=== PATIENT | female | born 1975 | race Caucasian/White ===

== ENCOUNTER 2018-10-17 09:00 | Outpatient (CLI) | payer OTHER ==
[~2018-10-17] VITALS: Ht 170.2 cm; Wt 77.1 kg
[2018-10-17 09:10] VITALS: BP 128/79
[2018-10-17] MEDS ORDERED: MV-M1TAB32 PO (09:34)
[2018-10-17 10:00] LABS: BILIRUBIN,URINE NEGATIVE (NEGATIVE); CLARITY,URINE CLEAR; COLOR,URINE YELLOW; GLUCOSE, URINE (UA) NEGATIVE (NEGATIVE); KETONES,URINE NEGATIVE (NEGATIVE); LEUKOCYTE ESTERASE ,URINE NEGATIVE (NEGATIVE); NITRITE,URINE NEGATIVE (NEGATIVE); PH,URINE 7 (5-9); PROTEIN,URINE NEGATIVE (NEGATIVE); UROBILINOGEN,URINE NORMAL (NORMAL)
[2018-10-17 10:00] LABS: BASOPHILS % (AUTO) 1 % (0-10); EOSINOPHILS # (AUTO) 0.1 10^3/uL (0.0-0.3); EOSINOPHILS % (AUTO) 2 % (0-10); HEMATOCRIT 43 % (35-52); HEMOGLOBIN 14.3 G/DL (11.5-16.0); LYMPHOCYTES # (AUTO) 1.9 X 10^3 (1.0-4.0); LYMPHOCYTES % (AUTO) 30 % (12-44); MEAN CORPUSCULAR HEMOGLOBIN 30 PG (25-34); MEAN CORPUSCULAR HGB CONC 33 G/DL (32-36); MEAN CORPUSCULAR VOLUME 89 FL (80-99); MEAN PLATELET VOLUME 10.7 FL (7.4-10.4); MONOCYTES # (AUTO) 0.6 X 10^3 (0.0-1.0); MONOCYTES % (AUTO) 10 % (0-12); NEUTROPHILS # (AUTO) 3.7 X 10^3 (1.8-7.8); NEUTROPHILS % (AUTO) 58 % (42-75); PLATELET COUNT 326 10^3/uL (130-400); RED CELL DISTRIBUTION WIDTH 12.8 % (10.0-14.5); WHITE BLOOD COUNT 6.4 10^3/uL (4.3-11.0)
[2018-10-17 10:14] LABS: BACTERIA,URINE NEGATIVE /HPF; SQUAMOUS EPITHELIAL CELL,UR 0-2 /HPF
== END 2018-10-17 09:35 | disposition home or self-care (01) ==
LOC: PREOP 09:00
PROVIDERS: ATTEND Obstetrics & Gynecology
DX: Z01.812 Encounter for preprocedural laboratory examination (principal); Z11.2 Encounter for screening for other bacterial diseases; N80.9 Endometriosis, unspecified; N81.9 Female genital prolapse, unspecified
CPT/HCPCS: 36415; 81000; 85025; 86850; 86900; 86901; 87081

== ENCOUNTER 2018-10-22 06:05 | Day surgery (SDC) | payer OTHER ==
[~2018-10-22] VITALS: Ht 170.2 cm; Wt 77.1 kg
[~2018-10-22 06:05] MED LIST: MV-M1TAB32 PO
[2018-10-22] MEDS ORDERED: LIDOCAINE/PRILOCAINE (EMLA) 5 GM TUBE TP ONE ×2 (06:08→06:15)
[2018-10-22] MEDS ORDERED: LACTATED RINGERS 1,000 ML IV PRN (06:10)
--- OUTSIDE RECORDS SUMMARY | 2018-10-22 06:12 | XMS REPORT ---
Author Author VIOLA GEORGES [facility] Address [address] [place] [address] Care Team Providers Care Email Marketing Manager Name Role Phone VIOLA GEORGES Unavailable PROBLEMS ALLERGIES No Information ENCOUNTERS IMMUNIZATIONS No Known Immunizations SOCIAL HISTORY No smoking Hx information available REASON FOR VISIT PLAN OF CARE VITAL SIGNS MEDICATIONS Unknown Medications RESULTS No Results PROCEDURES No Known procedures INSTRUCTIONS MEDICATIONS ADMINISTERED No Known Medications MEDICAL (GENERAL) HISTORY
--- OUTSIDE RECORDS SUMMARY | 2018-10-22 06:12 | XMS REPORT ---
Author Author VIOLA GEORGES Organization [facility] [place] Address [address] [place] [address] Care Team Providers Care Air Hose Coupler Name Role Phone VIOLA GEORGES Unavailable PROBLEMS Type Condition ICD9-CM Code [id number] Code Onset Dates Condition Status SNOMED Code Problem Vulvodynia N94.819 Active 995201444 ALLERGIES No Information ENCOUNTERS Encounter Location Date Diagnosis [facility] [place] [id number] [place] [phone] Apr, [facility] [place] [id number] [place] [phone] Apr, [facility] [place] [id number] [place] [phone] Apr, [facility] [place] [id number] [place] [phone] Mar, Umbilical hernia without obstruction and without gangrene K42.9 ; Vulvodynia N94.819 and Skin lesion of right arm L98.9 [facility] [place] [address], [place] [address] Mar, IMMUNIZATIONS No Known Immunizations SOCIAL HISTORY Never Assessed REASON FOR VISIT Re:RE:Referral for Dr. Ramires PLAN OF CARE VITAL SIGNS MEDICATIONS Unknown Medications RESULTS No Results PROCEDURES No Known procedures INSTRUCTIONS MEDICATIONS ADMINISTERED No Known Medications MEDICAL (GENERAL) HISTORY Type Description Date Medical History leukemia acute lymphoblastic in 1990, remission in 1992, cured in 1995 Surgical History mediport placed in 1990- removed in 1992 Surgical History breast reduction 2000 Surgical History left ankle surgery 2008 Surgical History right hip surgery to repair tear in cartilage 2014 Hospitalization History surgeries
--- OUTSIDE RECORDS SUMMARY | 2018-10-22 06:12 | XMS REPORT ---
Author Author VIOLA GEORGES Organization [facility] [place] Address [address] [place] [address] Care Team Providers Care Payer Specialist Name Role Phone VIOLA GEORGES Unavailable PROBLEMS Type Condition ICD9-CM Code [id number] Code Onset Dates Condition Status SNOMED Code Problem Vulvodynia N94.819 Active [id number] ALLERGIES No Information ENCOUNTERS Encounter Location Date Diagnosis [facility] [place] [id number] [place] [phone] Apr, [facility] [place] [id number] [place] [phone] Apr, [facility] [place] [id number] [place] [phone] Apr, [facility] [place] [id number] [place] [address] Mar, Umbilical hernia without obstruction and without gangrene K42.9 ; Vulvodynia N94.819 and Skin lesion of right arm L98.9 [facility] [place] [address] [address] Mar, IMMUNIZATIONS No Known Immunizations SOCIAL HISTORY Never Assessed REASON FOR VISIT Referral for Dr. Ramires PLAN OF CARE VITAL [...]
--- OUTSIDE RECORDS SUMMARY | 2018-10-22 06:13 | XMS REPORT ---
Author Author VIOLA GEORGES Organization [facility] Address [address] [place] [address] Care Team Providers Care Front Line Leader Name Role Phone VIOLA GEORGES Unavailable PROBLEMS Type Condition ICD9-CM Code [id number] Code Onset Dates Condition Status SNOMED Code Problem Vulvodynia N94.819 Active [id number] ALLERGIES No Known Allergies ENCOUNTERS Encounter Location Date Diagnosis [facility] [id number] [place] [phone] Apr, [facility] [id number] [place] [phone] Apr, [facility] [address] [phone] Apr, [facility] [id number] [place] [address] Mar, Umbilical hernia without obstruction and without gangrene K42.9 ; Vulvodynia N94.819 and Skin lesion of right arm L98.9 [facility] [id number] [place] [phone] Mar, IMMUNIZATIONS No Known Immunizations SOCIAL HISTORY Never Assessed REASON FOR VISIT Establish Care, [place]. Ne[place], was suppose to have hernia repair in [place]. CBrumbackRN PLAN OF CARE Activity Details Follow Up after visit to Dr Ramires Reason: VITAL SIGNS Height 67 in 2018-04-24 Weight 168.4 lbs 2018-04-24 Temperature 97.7 degrees Fahrenheit 2018-04-24 Heart Rate 84 bpm 2018-04-24 Respiratory Rate 16 2018-04-24 Oximetry 98 % 2018-04-24 BMI 26.37 kg/m2 2018-04-24 Blood pressure systolic 102 mmHg 2018-04-24 Blood pressure diastolic 74 mmHg 2018-04-24 MEDICATIONS Medication Instructions Dosage Frequency Start Date End Date Duration Status Vitamin D 1000 UNIT Orally Once a day 1 tablet 24h Active Ferrous Sulfate 325 (65 Fe) MG Orally Once a day 1 tablet 24h Active RESULTS No Results PROCEDURES No Known procedures [...]
--- OUTSIDE RECORDS SUMMARY | 2018-10-22 06:13 | XMS REPORT ---
Author Author DAVID Klein Organization [facility] Address [address] [place] [address] Care Team Providers Care [employer] Principal Name Role Phone DAVID Klein Unavailable PROBLEMS Type Condition ICD9-CM Code [id number] Code Onset Dates Condition Status SNOMED Code Problem Vulvodynia N94.819 Active [id number] ALLERGIES No Information ENCOUNTERS Encounter Location Date Diagnosis [facility] [id number] [place] [phone] Apr, [facility] [id number] [place] [address] Apr, [facility] [id number] [place] [address] Apr, [facility] [id number] [place] [address] Mar, Umbilical hernia without obstruction and without gangrene K42.9 ; Vulvodynia N94.819 and Skin lesion of right arm L98.9 [facility] [id number] [place] [address] Mar, IMMUNIZATIONS No Known Immunizations SOCIAL HISTORY Never Assessed REASON FOR VISIT Cancel Appointment Request PLAN OF CARE VITAL SIGNS MEDICATIONS Unknown [...]
[2018-10-22] MEDS ORDERED: metroNIDAZOLE 500MG/100ML IVPB 100 ML IV ONE (06:15)
[2018-10-22] MEDS ORDERED: ceFAZolin INJECTION 1,000 MG in WATER (STERILE) FOR INJECTION 10 ML IV ONE (06:15)
[2018-10-22 06:20] VITALS: BP 120/67
[2018-10-22] MEDS: LACTATED RINGERS 1,000 ML IV PRN ×3 (06:50→10:28)
[2018-10-22] MEDS ORDERED: MIDAZOLAM 2 MG/2 ML (VERSED) VIAL IV ONE (07:00)
[2018-10-22] MEDS ORDERED: SCOPOLAMINE 1.5 MG (TRANSDERM-SCOP) PATCH TOP ONE (07:00)
[2018-10-22] MEDS ORDERED: FAMOTIDINE 20MG/2ML IV (PEPCID) IV ONE (07:00)
[2018-10-22] MEDS ORDERED: ONDANSETRON 4 MG/2 ML (SDV) Z0FRAN IV ONE (07:00)
[2018-10-22] MEDS ORDERED: SCOPOLAMINE 1.5 MG (TRANSDERM-SCOP) PATCH ONE (07:05)
[2018-10-22] MEDS ORDERED: FAMOTIDINE 20MG/2ML IV (PEPCID) ONE (07:05)
[2018-10-22] MEDS ORDERED: ONDANSETRON 4 MG/2 ML (SDV) Z0FRAN ONE ×2 (07:05→07:06)
[2018-10-22] MEDS ORDERED: LIDOCAINE PF 2% 5 ML (XYLOCAINE) VIAL ONE (07:06)
[2018-10-22] MEDS ORDERED: proPOfol 200 MG/20 ML (DIPRIVAN) VIAL IV ONE (07:06)
[2018-10-22] MEDS ORDERED: fentaNYL INJECTION 100 MCG/2 ML AMP ONE ×3 (07:06→11:28)
[2018-10-22] MEDS ORDERED: ROCURONIUM 10 MG/ML 5 ML SYRINGE IV ONE ×2 (07:06→08:54)
[2018-10-22] MEDS ORDERED: MIDAZOLAM 2 MG/2 ML (VERSED) VIAL ONE (07:07)
[2018-10-22] MEDS ORDERED: DEXAMETHASONE 10 MG/ML (DECADRON) 1 ML VIAL ONE (07:10)
[2018-10-22] MEDS ORDERED: SEVOFLURANE (ULTANE) 15 ML INHAL SOLN ONE ×16 (07:10→11:24)
[2018-10-22] MEDS ORDERED: CATHETER FLUSH 10 ML SYR IV PRN (07:15)
[2018-10-22] MEDS ORDERED: BUP/EPI 0.5% 1:200,000 (SENSORCAINE) 30 ML VIAL ONE (07:27)
--- NOTE | 2018-10-22 07:41 | Progress Note-Pre Operative ---
Pre-Operative Progress Note H&P Reviewed The H&P was reviewed, patient examined and no changes noted. Date Seen by Provider: Oct 22, 2018 Time Seen by Provider: 07:30 Date H&P Reviewed: Oct 22, 2018 Time H&P Reviewed: 07:15 Pre-Operative Diagnosis: dysmenorrhea, dyspareunia, incomplete pelvic prolapse , ERICK SANTA STOCK DO Oct 22, 2018 07:41
[2018-10-22] MEDS ORDERED: NS (IVPB) 100 ML ONE (08:36)
[2018-10-22] MEDS ORDERED: VASOPRESSIN INJECTION 20 UNIT/ML VIAL ONE (08:36)
[2018-10-22] MEDS ORDERED: ESTRADIOL VAGINAL CREAM 42.5 GM (ESTRACE) VG ONE (08:36)
[2018-10-22] MEDS ORDERED: GLYCOPYRROLATE 0.2 MG/ML (ROBINUL) 2 ML VIAL ONE (09:39)
[2018-10-22] MEDS ORDERED: NEOSTIGMINE 1 MG/ML 5 ML SYRINGE ONE (09:39)
[2018-10-22] MEDS ORDERED: LACTATED RINGERS 1,000 ML IV SCH (10:54)
--- NOTE | 2018-10-22 10:54 | Operative Report ---
Operative Report Date of Procedure/Surgery Oct 22, 2018 Surgeon (s) SANTA STOCK DO Delivery Representative (s): NA Post-Operative Diagnosis CPP, incomplete urogenital prolapse, Stress incontinence, adenomyosis Procedure Performed RaTH, bilateral salpingectomy, Solyx pubovaginal sling Description of Procedure Anesthesia Type: General Estimated blood loss (mL): 150 Specimen(s) collected/removed uterus, bilateral tubes Description of the Procedure After informed consent was obtained, patient was taken into the operating room where general anesthetic was found to be adequate. She was prepped and draped in the usual sterile fashion in the dorsal lithotomy position. A Artis catheter was placed. A speculum was placed in the vagina. The cervix was visualized and was prolapsed to the introitus. The anterior lip was grasped with a sharp toothed tenaculum. The uterus was sounded and depth was approximately 8 centimeters. I placed the Katelynn device. And then set the Katelynn to 8 cm and a 3.5 cm collar was advanced over the cervix. I inserted the Katelynn without difficulty, inflating the balloon and securing it around the fornix of the cervix. The collar was then secured with sutures at 12 o'clock. Attention was then turned to the patient's abdomen. A supraumbilical incision was made about 10 mm. A Veress needle was inserted and I confirmed intraabdominal placement with a drop in pressure and the saline drop test. I then insufflated the abdomen to a maximum of 15 mmHg with warmed CO2 gas. I then placed an 10 mm trocar and then the Da Sarah camera and intraperitoneal placement was confirmed. I then determined the procedure could be continued robotically. The first robotic port was placed about 15 cm lateral to the right and left of the umbilical placement and slightly inferior. These are both 8 mm trocars. These were placed under direct visualization of the laparoscope. 0.25% Marcaine was injected prior to placement of all trocars. When all placements were confirmed, the patient was placed in steep Trendelenburg allowing adequate visualization and the robot was brought in for docking. The docking was accomplished without difficulty. A survey of the pelvis confirmed the above mentioned findings. I was able to visualize the round ligaments bilaterally and grasped them and cauterized with bipolar cautery and then cut with my raeann. At this point, I then did bilateral salpingectomy. she had previously had a tubal ligation, so I removed the remainder of the tubes bilaterally. I cut along the mesosalpinx with the monopolar raeann and then dissected up to the cornu bilaterally. I then moved to the uteroovarian ligaments. I sealed the vessel and transected bilaterally using the bipolar cautery and then cut with the monopolar raeann. I then moved my dissection to the posterior leaves of the broad ligament. I dissected the posterior leaves of the broad ligament off the uterine arteries skeletonizing them bilaterally. I then took a second clamp with the bipolar cautery and with the raeann, transected the vessels away from the lateral aspect to the cervical stroma. I dissected the anterior peritoneum off the lower uterine segment. I continually pushed the bladder back and I took excessively great care and I was eventually able to dissect the vesicouterine peritoneum off the lower uterine segment. I then dissected in a V fashion towards the midline between the uterosacral ligaments. This allowed me to skeletonize the uterine vessels bilaterally. The balloon on the KATELYNN was insufflated. This allowed me to see the KATELYNN circumferentially. I then performed a colpotomy anteriorly and then amputate with cervix away from the vaginal fornix. I then continued the colpotomy circumferentially. The administrative library assistant removed the uterus through the vagina. The cervix was extremely long, so I initially cut through part of the anterior cervix to remove the uterus. Once I removed the uterus, the rest of the cervix was removed and sent with pathology. A sponge was left in the vagina to maintain pneumoperitoneum. I then began closure of the vaginal cuff. The uterus was left in the vagina to maintain pneumoperitoneum. I closed the apices of the vaginal cuff with 2-0 Vicryl V lock sutures with a colposuspension through the uterosacral ligaments. This suspended the apices of the vaginal cuff. I extended this to the midline from both sides and overlapped the V lock sutures in the midline. Excellent closure is noted and hemostasis is achieved. All the needles were removed from the patient's abdomen. Patient was now repositioned for the vaginal portion of the procedure. Now, A 1 cm incision was made in the suburethral space with a scalpel about 1.5 cm from the urethral meatus. I dissected bilaterally to the obturator membranes and then inserted the Solyx bilaterally and then tightened under the midurethra. I did a cystoscopy which was negative. There was bilateral urethral efflux of urine. I then kept 300 ml in the bladder and did a Cred. There was minimal leakage. The sling laid gently under the urethra and was not too tight. There was no intravesicular pathology. The incision was closed with 4-0 Monocryl in a running fashion. Artis was reinserted. Patient was awakened and taken to the recovery room in stable condition. Following the case, instrument counts were correct. The patient was repositioned in the supine position and awakened from general anesthesia without difficulty. She was taken to recovery in stable condition. She will be observed overnight. Findings of the Procedure 2 - 3 + uterine descensus. The cervix was extremely long with a longer anterior lip. There was greater than 50 degrees of rotation of the urethra. Evidence of bilateral tubal interruption. There was an adhesin of the right tubal remnant to the posterior culdesac. Uterus was boggy consistent with adenomyosis Allergies and Home Medications Allergies Coded Allergies: nickel (Verified Allergy, Unknown, RASH, 10/17/18) Home Medications Acetaminophen 500 Mg Tablet, 1,000 MG PO Q8H Prescribed by: SANTA STOCK on 10/23/18858 Ibuprofen 600 Mg Tablet, 600 MG PO Q6H Prescribed by: SANTA STOCK on 10/23/18858 Mv-Min/Vit C/Glut/Vonda AC/Hc124 1 Each Tab.chew, 2 EACH PO DAILY, (Reported) Simethicone 80 Mg Tab.chew, 40 MG PO TID PRN for INDIGESTION Prescribed by: SANTA STOCK on 10/23/18858 [Oxycodone Hcl] 5 MG TAB, 5 MG PO Q4H PRN for PAIN-SEVERE Prescribed by: SANTA STOCK on 10/23/18858 Patient Home Medication List Home Medication List Reviewed: SANTA Chow DO Oct 22, 2018 10:54
[2018-10-22] MEDS ORDERED: HYDROmorphone 2 MG/ML VIAL (DILAUDID) IV PRN (11:00)
[2018-10-22] MEDS ORDERED: CHLORASEPTIC LOZENGE MM PRN (11:00)
[2018-10-22] MEDS ORDERED: ANTACID SUSP 30 ML UDC (MYLANTA) PO PRN (11:00)
[2018-10-22] MEDS ORDERED: SIMETHICONE 80 MG (MYLICON) CHEW PO PRN (11:00)
[2018-10-22] MEDS ORDERED: DOCUSATE SODIUM 100 MG (COLACE) CAP PO PRN (11:00)
[2018-10-22] MEDS ORDERED: KETOROLAC 30 MG/ML VIAL IVP ONE (11:00)
[2018-10-22] MEDS ORDERED: ONDANSETRON 4 MG/2 ML (SDV) Z0FRAN IV PRN (11:00)
[2018-10-22] MEDS ORDERED: PHENYLEPHRINE 100 MCG/ML 10 ML (ANESTHESIA) SYR ONE (11:05)
[2018-10-22] MEDS ORDERED: morphine INJ 10 MG/ML 1ML (SYR OR VIAL) ONE (11:58)
[2018-10-22] MEDS ORDERED: KETOROLAC 30 MG/ML VIAL ONE (11:58)
[2018-10-22] MEDS ORDERED: ONDANSETRON 4 MG/2 ML (SDV) Z0FRAN IVP PRN (12:00)
[2018-10-22] MEDS ORDERED: morphine INJ 10 MG/ML 1ML (SYR OR VIAL) IVP ONE (12:00)
[2018-10-22] MEDS: KETOROLAC 30 MG/ML VIAL IV SCH ×2 (12:04→18:19)
[2018-10-22 12:45] VITALS: BP 97/50
--- NOTE | 2018-10-22 12:45 | NUR ---
Pt to room 306 via bed accompanied by PACU staff. Report rec'd bedside from HIRA Carlin. SCD's on and activated. VS taken. IV fluids to pump. Assessment completed. Fresh ice water provided. Artis patent to dependent drainage, draining clear, yellow urine. Pt remains drowsy, but oriented to room and call light. States S.O. should be in hospital somewhere. C/o pain in abd, will review orders and admin pain medicine. Call light within reach.
--- NOTE | 2018-10-22 13:08 | NUR ---
RT called and notified of need for IS.
--- NOTE | 2018-10-22 13:25 | NUR ---
Pt resting peacefully, S.O. at bedside. No questions or concerns voiced by either at this time. Will wait to admin pain medication.
--- NOTE | 2018-10-22 13:27 | Progress Note-Post Operative ---
Post-Operative Progess Note Surgeon (s)/Cooking Chef (s) Surgeon COLUMBA DINH DO Cooking Chef: Fer Pre-Operative Diagnosis Incarcerated [facility] Post-Operative Diagnosis same Procedure & Operative Findings Date of Procedure 10/22/18 Procedure Performed/Findings Lap with mesh Anesthesia Type GET Estimated Blood Loss Estimated blood loss (mL): scant Specimens/Packing Specimens Removed umbilical hernia contents COLUMBA DINH DO Oct 22, 2018 13:27
[2018-10-22 14:00] VITALS: BP 110/56
[2018-10-22 15:51] VITALS: BP 93/51
--- NOTE | 2018-10-22 16:50 | NUR ---
Dr. Ramires here to see pt. No orders rec'd. Ice pack refilled for pt, extra pillow provided. Pt more alert at this time, room service explained. Pt reports pain is better, but still hurts to take deep breaths. No s/s of distress noted.
[2018-10-22 19:59] VITALS: BP 87/52
[2018-10-23 00:15] VITALS: BP 114/75
[2018-10-23] MEDS: KETOROLAC 30 MG/ML VIAL IV SCH (00:15)
--- NOTE | 2018-10-23 02:54 | OPERATIVE REPORT ---
DATE OF SERVICE: PREOPERATIVE DIAGNOSIS: Incarcerated umbilical hernia. POSTOPERATIVE DIAGNOSIS: Incarcerated umbilical hernia. PROCEDURE: Laparoscopic umbilical herniorrhaphy with mesh placement. SURGEON: Dima Ramires DO CORRECTIONAL THERAPY TEACHER: Jarrod Monroe DO ANESTHESIA: General endotracheal tube. SPECIMEN: Hernia contents. BLOOD LOSS: Scant. FLUIDS: Per anesthesia. POSTOPERATIVE CONDITION: Stable. INDICATION FOR PROCEDURE: The patient is a 43-year-old female who had incarcerated umbilical hernia, having abdominal pain and wants to get this fixed. FINDINGS: The patient had incarcerated umbilical hernia with fat. Pictures taken. Mesh placed. PROCEDURE NOTE: After informed consent was obtained, the patient first had gone to the operating room with Dr. Smith to have a SUPERVISORY CLERK surgery performed. Dr. Smith finished her procedure using laparoscopically with robot. We then kept the patient intubated and left the ports in place, but added one more port in the left upper quadrant with local lidocaine, 11 blade for stab incision and VersaStep system, all done under direct visualization, able to identify fat and the umbilical area, elected to take the fat down off the abdominal wall with a LigaSure, clamping, coagulating and transecting in this fashion bring this down off the abdominal wall and pulling the fat out of the umbilical hernia, which was completely removed, able to grasp it and pull it through the umbilical hernia incision. Took pictures of the fascial defect and at this point, I then placed a 4-inch in diameter takotna Bard mesh through this umbilical incision. I then elected to close the umbilical incision with 0 Vicryl simple suture was used with the MariannKalpesh to place this what felt this can pushed through the fascia and watched to come through with the scope and then tightened this down, pulled the balloon attachment up and then blew up the balloon to hold the fascia in place. Then, using a SecureStrap tacked at the 9, 12, 6 and 3 o'clock position and in between at 0.5 to 1 cm intervals and then a second inner layer during this time, the pressure was down at the 12 mmHg. Mesh laid up very nicely and at this point, then removed the balloon and then took a picture of the mesh and then removed all ports under direct visualization allowed pneumoperitoneum to escape. Closed all the incisions. There was a small 5 mm incision closed with single interrupted 4-0 undyed Monocryl subcuticular stitch. Three 8 mm ports were closed with a 4-0 undyed Monocryl subcuticular stitches and then the umbilical incision was closed with a 4-0 undyed Monocryl subcuticular stitches. Area was cleaned and dried. Dermabond placed as well as Band-Aids. The patient then transferred to recovery room in stable condition. Sponge, instrument and needle count correct at the end of the case. Dr. Monroe assisted in this case helping to identify anatomy and helped place the mesh and close the incisions. Job ID: [id number] DocumentID: [id number] Dictated Date: 10/22/2018 18:00:42 Grocery Store Manager Date: 10/23/2018 02:53:54 Dictated By: DO SERGIO FOSTER
[2018-10-23 06:20] VITALS: BP 96/52
[2018-10-23 07:54] VITALS: BP 110/55
--- NOTE | 2018-10-23 08:33 | Anesthesia-General Post-Op ---
General Patient Condition Mental Status/LOC: Same as Preop Cardiovascular: Satisfactory Nausea/Vomiting: Absent Respiratory: Satisfactory Pain: Controlled Complications: Absent Post Op Complications Complications None Follow Up Care/Instructions Patient Instructions None needed. Anesthesia/Patient Condition Patient Condition Patient is doing well, no complaints, stable vital signs, no apparent adverse anesthesia problems. No complications reported per nursing. D/C home per [facility] Criteria: FELIPA Moore CRNA Oct 23, 2018 08:33
--- NOTE | 2018-10-23 08:57 | Discharge Inst-Women's Service ---
Discharge Inst-Women's Serv Depart Medication/Instructions New, Converted or Re-Newed RX: RX on Chart Final Diagnosis incomplete uterovaginal prolapse stress incontinence umbilical hernia Consults/Follow Up Additional Follow Up: Yes Activity Activity: Activity as Tolerated Driving Instructions: No Driving for 1 Week NO SMOKING: NO SMOKING Nothing Inside Vagina: No Douching, No [place], No Tampons Diet Discharge Diet: No Restrictions Symptoms to Report to : Swelling Increased, Bleeding Excessive, Pain Increased, Fever Over 101 Degrees F, Vaginal Bleeding Increase, Cramps in Feet or Legs, Vaginal Discharge Foul For Any Problems or Questions: Contact Your Physician Skin/Wound Care Infection Signs and Symptoms: Increased Redness, Foul Odor of Wound, Increased Drainage, Skin Itchy or Has a Rash, Increased Swelling, Temperature Above 101 F Operative Area Clean and Dry: Keep Incision Clean/Dry Stitches/Tay/Dermabond: Dermabond Bathing Instructions: SANTA Nance DO Oct 23, 2018 08:57
[2018-10-23] MEDS ORDERED: Oxycodone Hcl PO (08:59)
[2018-10-23] MEDS ORDERED: IBUP-844 PO (08:59)
[2018-10-23] MEDS ORDERED: SIME80TA16 PO (08:59)
[2018-10-23] MEDS ORDERED: ACET-77 PO (08:59)
[2018-10-23] MEDS ORDERED: ACETAMINOPHEN 500 MG TAB (TYLENOL) PO SCH (09:00)
--- NOTE | 2018-10-23 10:10 | NUR ---
Dr. Ramires here to see pt, D/C orders rec'd.
[2018-10-23] MEDS ORDERED: IBUPROFEN 600 MG (MOTRIN) TAB PO SCH (11:00)
--- NOTE | 2018-10-23 12:00 | NUR ---
Explained discharge education to pt with copy and RX provided. Pt verbalizes understanding and signs to verify. No questions or concerns voiced at this time. 1241 Pt taken off unit via wheelchair accompanied via staff to private vehicle. All personal belonging with pt. No s/s of distressed.
[2018-10-23 12:25] VITALS: BP 99/55
== END 2018-10-23 12:41 | disposition home or self-care (01) ==
LOC: SDC 06:05 → WS 12:45 → SDC 10-23 12:41
PROVIDERS: ATTEND Obstetrics & Gynecology
DX: N81.2 Incomplete uterovaginal prolapse (principal); N39.3 Stress incontinence (female) (male); N80.0 Endometriosis of uterus; N83.8 Other noninflammatory disorders of ovary, fallopian tube and broad ligament; K42.0 Umbilical hernia with obstruction, without gangrene; F41.9 Anxiety disorder, unspecified; Z80.0 Family history of malignant neoplasm of digestive organs; Z79.899 Other long term (current) drug therapy; Z87.891 Personal history of nicotine dependence
CPT/HCPCS: 84703; 86850; 86900; 86901; 88302; 88307; 94664

== ENCOUNTER → 2019-09-30 | Outpatient (CLI) | payer OTHER ==
[~2019-09-30] MED LIST changes: +ACET-78 PO; +IBUP-844 PO; +Oxycodone Hcl PO; +SIME80TA16 PO
--- NOTE | 2019-09-30 15:57 | Diagnostic Imaging Report ---
INDICATION: History of chemotherapy. COMPARISON: None. FINDINGS: AP Spine L1-L4: [BMD (g/cm2): 1.203] [T-Score: 0.0] [Z-Score: -0.5] [BMD Previous: NA] [BMD % Change: NA] LT Hip Neck: [BMD (g/cm2): 1.064] [T-Score: 0.2] [Z-Score: 0.3] LT Hip Total: [BMD (g/cm2):1.101] [T-Score:0.7] [Z-Score: 0.6] [BMD Previous: NA] [BMD % Change: NA] RT Hip Neck: [BMD (g/cm2):0.988] [T-Score:-0.4] [Z-Score:-0.2] RT Hip Total: [BMD (g/cm2):1.035] [T-score:0.2] [Z-Score:0.1] [BMD Previous:NA] [BMD % Change:NA] *Indicates significant change from prior examination based on 95% confidence level. World Health Organization criteria for BMD interpretation classify patients as Normal (T-score at or above -1.0), Osteopenic (T-score between -1.0 and -2.5) or Osteoporotic (T-score at or below -2.5). LIMITATIONS AND MODIFICATION: None. FRACTURE RISK (FRAX SCORE): The ten year probability of (%): Major Osteoporotic Fracture: [NA] Hip Fracture: [NA] IMPRESSION: 1. Normal bone mineral density. 2. Baseline examination. 3. See below National Osteoporosis Foundation guidelines on when to potentially initiate pharmacologic therapy. Based on the National Osteoporosis Foundation Guidelines, pharmacologic treatment should be initiated in any of the following, unless clinical conditions suggest otherwise: * Any patient with prior fragility fracture of the hip or vertebrae. A spine fracture indicates 5X risk for subsequent spine fracture and 2X risk for subsequent hip fracture. * Osteoporosis (T-score <-2.5). * Postmenopausal women and men age 50 and older with low bone mass/osteopenia (T-score between -1.0 and -2.5) by DXA and 10-year major osteoporotic fracture greater than 20% or a 10-year probability of hip fracture greater than 3%. These fracture risks are supplied above in the FRAX score, if applicable. * Clinician judgement and/or patient preferences may indicate treatment for people with 10-year fracture probabilities above or below these levels. Dictated by: Dictated on workstation # [id number]
== END ==
LOC: RAD 14:28
PROVIDERS: ATTEND Pediatrics
DX: Z13.820 Encounter for screening for osteoporosis (principal); Z92.21 Personal history of antineoplastic chemotherapy
CPT/HCPCS: 77080

== ENCOUNTER 2019-10-15 12:00 | Outpatient (CLI) | payer OTHER ==
[~2019-10-15] VITALS: Ht 170 cm; Wt 80.9 kg
[~2019-10-15 12:00] MED LIST changes: -CHOL500049 PO
[2019-10-15] MEDS ORDERED: CHOL500049 PO (12:01)
== END 2019-10-15 12:19 | disposition home or self-care (01) ==
LOC: PREOP 12:00
PROVIDERS: ATTEND Surgery
DX: Z01.818 Encounter for other preprocedural examination (principal)

== ENCOUNTER → 2019-10-15 | Outpatient (CLI) | payer OTHER ==
[~2019-10-15] MED LIST changes: +CHOL500049 PO
[2019-10-15 16:30] VITALS: BP 127/79
--- NOTE | 2019-10-15 16:30 | Cardiology Stress Test Report ---
Stress Test Report Date of Procedure/Referring: Date of Procedure: Oct 15, 2019 PCP Mihaela Goodman Admitting Physician Center/[facility] Indications: Chest pain Baseline Heart Rate: 69 Baseline Blood Pressure: Blood Pressure Systolic: 127 Blood Pressure Diastolic: 79 Baseline EKG: Baseline EKG: Normal sinus rhythm Summary/Conclusion: Summary: In summary, the patient started exercising with a baseline heart rate, blood pressure and EKG mentioned above Patient was able to exercise for a total of 8 minutes on Aayush protocol, 9.7 METs Maximum heart rate 164 Maximum blood pressure 163/78 Stress EKG Minimal nondiagnostic changes Recovery EKG Return to baseline Conclusion: 1. Good exercise tolerance for a total of 8 minutes on Aayush protocol, 9.7 METs, achieving 92 percent of maximum expected heart rate 2. Minimal nondiagnostic EKG changes with exercise returned to baseline during recovery 3. No arrhythmia was noted BEAU HOPPER MD Oct 15, 2019 16:30
== END ==
LOC: CARD 13:47
PROVIDERS: ATTEND Physician Assistant
DX: R07.9 Chest pain, unspecified (principal)
CPT/HCPCS: 93017

== ENCOUNTER → 2021-12-30 | Outpatient (CLI) | payer OTHER ==
[~2021-12-30] MED LIST changes: +CHOL500049 PO
--- NOTE | 2021-12-30 15:45 | Diagnostic Imaging Report ---
PROCEDURE: MRI lumbar spine. TECHNIQUE: Multiplanar, multisequence MRI of the lumbar spine was performed without contrast. DATE: December 30, 2021. COMPARISON: None. INDICATION: 46-year-old female, low back pain. History of acute lymphoblastic leukemia. FINDINGS: The alignment of the lumbar spine is unremarkable. There is no evidence of a diffuse marrow infiltrating or replacing process. There is no identified compression deformity or fracture. 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 There is no identified focal concerning bone lesion. The visualized cord and conus medullaris is unremarkable and terminates at the L1-L2 level. There is mild disc height loss at L5-S1. L1-L2: There is no disc bulge. The facet joints and ligamentum flavum are unremarkable. There is no foraminal narrowing. There is no spinal canal stenosis. L2-L3: There is no disc bulge. The facet joints and ligamentum flavum are unremarkable. There is no foraminal narrowing. There is no spinal canal stenosis. L3-L4: There is a small right paracentral disc protrusion without nerve root contact. The facet joints and ligamentum flavum are unremarkable. There is no foraminal narrowing. There is no spinal canal stenosis. L4-L5: There is an annular tear and tiny left paracentral disc protrusion without nerve root contact. The facet joints and ligamentum flavum are unremarkable. There is no foraminal narrowing. There is no spinal canal stenosis. L5-S1: There is an annular tear with small broad-based posterior disc protrusion. There is no identified nerve root contact. The facet joints and ligamentum flavum are unremarkable. There is very mild bilateral foraminal narrowing. There is no spinal canal stenosis. IMPRESSION: 1. Annular tears and small posterior disc protrusions at L3-L4, L4-L5, and L5-S1 as described above. There is no identified nerve root contact. There is very mild bilateral foraminal narrowing at L5-S1. 2. No evidence of a diffuse marrow infiltrating or replacing process or focal concerning bone lesion. Dictated by: Dictated on workstation # [id number]
== END ==
LOC: RAD 13:15
PROVIDERS: ATTEND Pediatrics
DX: M51.16 Intervertebral disc disorders with radiculopathy, lumbar region (principal); M51.37 Other intervertebral disc degeneration, lumbosacral region; M48.07 Spinal stenosis, lumbosacral region; Z92.21 Personal history of antineoplastic chemotherapy; Z98.890 Other specified postprocedural states
CPT/HCPCS: 72148

== ENCOUNTER 2022-01-05 10:04 | Outpatient (RCR) | payer OTHER | END 2022-01-24 | disposition home or self-care (01) | PROVIDERS: ATTEND Pediatrics | DX: M54.16 Radiculopathy, lumbar region (principal) ==

== ENCOUNTER → 2022-02-23 | Outpatient (RCR) | payer OTHER | END | disposition home or self-care (01) | PROVIDERS: ATTEND Pediatrics | DX: M54.16 Radiculopathy, lumbar region (principal) ==

== ENCOUNTER 2022-03-13 15:35 | Outpatient (RCR) | payer OTHER | END 2022-03-26 | disposition home or self-care (01) | PROVIDERS: ATTEND Pediatrics | DX: M54.16 Radiculopathy, lumbar region (principal) ==

== ENCOUNTER 2022-09-13 05:48 | Outpatient (CLI) | payer OTHER ==
[~2022-09-13] VITALS: Ht 170.2 cm; Wt 82.9 kg
[2022-09-13] MEDS ORDERED: MULT-593 PO (15:22)
== END 2022-09-13 15:28 | disposition home or self-care (01) ==
LOC: PREOP 05:48
PROVIDERS: ATTEND Surgery
DX: Z01.818 Encounter for other preprocedural examination (principal)

== ENCOUNTER 2022-09-25 09:15 | Day surgery (SDC) | payer OTHER ==
[~2022-09-25] VITALS: Ht 170.2 cm; Wt 82.9 kg
[~2022-09-25 09:15] MED LIST changes: +MULT-593 PO
[2022-09-25] MEDS ORDERED: LACTATED RINGERS 1,000 ML IV STA (09:19)
[2022-09-25] MEDS ORDERED: ALPRAZolam 0.25 MG (XANAX) TAB PO STA (09:27)
[2022-09-25] MEDS ORDERED: L.E.T. SOLUTION 3 ML SYR TOP ONE (09:30)
[2022-09-25 09:35] VITALS: BP 137/92
[2022-09-25] MEDS ORDERED: LACTATED RINGERS 1,000 ML IV ONE (09:48)
--- NOTE | 2022-09-25 10:45 | Progress Note-Pre Operative ---
Pre-Operative Progress Note Date of Available H&P: Sep 07, 2022 Date H&P Reviewed: Sep 25, 2022 Time H&P Reviewed: 10:44 History & Physical: H&P Reviewed, Patient Examed, No changes noted Pre-Operative Diagnosis: Hx of polyp, abd pain COLUMBA DINH DO Sep 25, 2022 10:45
[2022-09-25] MEDS ORDERED: PROPOFOL INJECTION 50 ML IV ONE (11:01)
--- NOTE | 2022-09-25 11:37 | Anesthesia-General Post-Op ---
MAC Patient Condition Mental Status/LOC: Same as Preop Cardiovascular: Satisfactory Nausea/Vomiting: Absent Respiratory: Satisfactory Pain: Controlled Complications: Absent Post Op Complications Complications None Follow Up Care/Instructions Patient Instructions None needed. Anesthesiology Discharge Order Discharge Order Patient is doing well, no complaints, stable vital signs, no apparent adverse anesthesia problems. No complications reported per nursing. ESCOBAR SHARMA CRNA Sep 25, 2022 11:37
[2022-09-25 11:40] VITALS: BP 107/65
[2022-09-25 11:45] VITALS: BP 98/62
--- NOTE | 2022-09-25 11:48 | Endoscopy Discharge Instruct ---
Endo Procedure/Findings Findings 1.: Polyp 2.: Internal Hemorrhoids Discharge Instructions - Activity: You might feel a little sleepy until tomorrow. This is due to the medicine you received to relax you. Until tomorrow, you should: NOT drive a car, operate machinery or power tools. NOT drink any alcoholic beverages. NOT make any important decisions or sign importortant papers. Do not return to work until tomorrow, unless otherwise instructed. Resume previous activities tomorrow. Diet: Start by taking liquids. If you tolerate liquids, advance to solid food. 1.: Colonscopy in 5 years Notify Physician - If you experience excessive bleeding, unusual abdominal pain, fever, or chest pain, contact your doctor immediately. COLUMBA DINH DO Sep 25, 2022 11:48
--- NOTE | 2022-09-25 11:48 | Progress Note-Post Operative ---
Post-Operative Progess Note Surgeon (s)/Sap Bpc Architect (s) Surgeon COLUMBA DINH DO Sap Bpc Architect: none Pre-Operative Diagnosis Hx of polyp, abd pain Post-Operative Diagnosis rectal polyp int hemorrhoids Procedure & Operative Findings Date of Procedure 09/25/22 Procedure Performed/Findings Colonoscopy with cold bx PROCEDURE NOTE: After informed consent was obtained, the patient was brought to the endoscopy suite, placed in bed in left lateral decubitus position. She was administered IV sedation by the HEATSET WINDER OPERATOR who then monitored her vitals the entire time, heart rate, blood pressure and pulse ox and the scope was inserted, pushed all the way to about 150 cm and pushed into the cecum, took a picture of appendiceal orifice and noted the ileocecal valve. Then slowly withdrew the scope insufflating to look circumferentially at the cohn starting in the cecum, up the ascending colon to the hepatic flexure, then down the transverse colon, splenic flexure, into the descending colon down in the sigmoid and then into the rectal vault. Found a small polyp in the rectum and elected to remove it with a cold biopsy. Finally retroflexed the scope and took a picture of the internal hemorrhoids. The patient tolerated the procedure. She was recovered in endoscopy suite. Recommended for repeat colonoscopy in 5 years. Anesthesia Type IV sedation by HEATSET WINDER OPERATOR Estimated Blood Loss Estimated blood loss (mL): scant Specimens/Packing Specimens Removed rectal polyp COLUMBA DINH DO Sep 25, 2022 11:48
[2022-09-25 11:50] VITALS: BP 108/67
[2022-09-25 12:05] VITALS: BP 100/78
== END 2022-09-25 12:24 | disposition home or self-care (01) ==
LOC: ENDO 09:15
PROVIDERS: ATTEND Surgery
DX: K62.1 Rectal polyp (principal); K64.8 Other hemorrhoids; R10.9 Unspecified abdominal pain; Z80.0 Family history of malignant neoplasm of digestive organs; Z87.891 Personal history of nicotine dependence